=== PATIENT | female | born 1950 | race Caucasian/White ===

== ENCOUNTER 2017-06-13 21:59 | Emergency (ER) | payer MEDICARE, MEDICAID ==
[~2017-06-13] VITALS: Ht 149.9 cm; Wt 74.6 kg
[~2017-06-13 21:59] MED LIST: METO25TE2 PO; RANI-287 PO; WARF2TAB79 PO
[2017-06-13 22:13] VITALS: BP 120/69
--- NOTE | 2017-06-14 00:09 | NUR ---
PATIENT LEFT WITHOUT BEING SEEN BY DR. WALLER. NO FURTHER CARE PROVIDED FOR PATIENT.
== END 2017-06-14 00:09 | disposition left against medical advice (07) ==
LOC: MED 21:59
DX: R06.02 Shortness of breath (principal); Z53.21 Procedure and treatment not carried out due to patient leaving prior to being seen by health care provider